=== PATIENT | male | born 1975 | race Caucasian/White ===

== ENCOUNTER → 2019-02-20 12:41 | Outpatient (CLI) | payer OTHER, SELFPAY ==
--- NOTE | 2019-02-20 | DI.RAD.S_ITS ---
PROCEDURE: XR KNEE LT 1TO2V INDICATIONS: LEFT KNEE PAIN TECHNIQUE: 2 views of the knee were acquired. COMPARISON: None. FINDINGS: Bones: No fractures or dislocations. No suspicious bony lesions. Soft tissues: No joint effusion. No suspicious soft tissue calcifications. IMPRESSION: Unremarkable 2 view left knee. Dictated by: Efrain Walton M.D. on 02/20/2019 at 17:30 Approved by: Efrain Walton M.D. on 02/20/2019 at 17:31
== END ==
PROVIDERS: Visit Provider Physician Assistant Medical
DX: M25.562 Pain in left knee (principal)
CPT/HCPCS: 73560

== ENCOUNTER → 2021-10-26 16:07 | Outpatient (CLI) | payer BC, SELFPAY ==
--- NOTE | 2021-10-26 | DI.RAD.S_ITS ---
PROCEDURE: XR CHEST 2V INDICATIONS: COVID TECHNIQUE: 2 views of the chest were acquired. COMPARISON: None. FINDINGS: Surgical changes and devices: Sternotomy wires are seen, some which are interrupted. Lungs and pleura: No consolidation, pleural effusions or pneumothorax. Mediastinum: Mediastinal contours are normal. The cardiac silhouette is upper limits of normal. Bones and chest wall: No suspicious bony abnormalities. Soft tissues appear unremarkable. IMPRESSION: No acute cardiopulmonary abnormality. Dictated by: Helio Shirley [facility] Interpreted: Alfie Prather MD on 10/26/2021 at 16:33 Approved by: Alfie Prather M.D. on 10/26/2021 at 17:00
== END ==
PROVIDERS: PCP Registered Nurse; Referring Provider Registered Nurse; Visit Provider Registered Nurse
DX: Z09 Encounter for follow-up examination after completed treatment for conditions other than malignant neoplasm (principal); Z86.16 Personal history of COVID-19
CPT/HCPCS: 71046

== ENCOUNTER 2021-11-29 12:26 | Emergency (ER) | payer OTHER, SELFPAY ==
[2021-11-29 12:39] VITALS: BP 113/73; PULSE 81; RESP 22; TEMP 36.6; O2SAT 99; BMI 27.4
--- NOTE | 2021-11-29 12:45 | ED_ITS ---
HPI - Back Pain/Injury <Helio Corona PA-C - Last Filed: 11/29/21 13:41> General Chief Complaint: Back Pain/Injury Stated Complaint: severe lower back pain Time Seen by Provider: 11/29/21 12:45 History of Present Illness HPI Narrative: David presents today with chief complaint of lower back pain that started yesterday morning. He reports that he was bending over stacking boxes. When he stood back up, not caring any box reaching out to grab another 1 he felt a spasm in his lower back. Initially did not think much of it but the pain became worse over the following few hours. This morning when he woke up his pain was significant any noticed a lot of tightness in his back. Pain is made worse with bending over at the hip or with any twisting movements. He denies any significant numbness or tingling in his lower extremities, difficulty walking, abdominal pain, urinary symptoms, fever or any other acute concerns or complaints. He denies any previous history of lower back injury or surgeries. Related Data Previous Rx's Medication Instructions Recorded methocarbamol 500 mg tablet 500 mg PO BID #14 tab 11/29/21 Review of Systems <Helio Corona PA-C - Last Filed: 11/29/21 13:41> Review of Systems Narrative: As per HPI Patient History <Helio Corona PA-C - Last Filed: 11/29/21 13:41> Social History Smoking Status: Unknown if ever smoked Exam <Helio Corona PA-C - Last Filed: 11/29/21 13:41> Narrative Exam Narrative: Exam Narrative: Const General: cooperative, healthy appearing, comfortable, no acute distress, well developed and well groomed Nutritional Appearance: average body habitus Orientation: alert and oriented x3 HENCA Head: normal to inspection and atraumatic Ears: hearing grossly normal bilaterally Nose: external nose normal and nares normal Face and sinus: normal facial exam Neck Neck: normal visual inspection and supple Resp Effort & Inspection: normal respiratory effort, able to speak in complete sentences, no audible wheezes, not labored, no nasal flaring and no respiratory distress Neuro General: alert, oriented x3, gait normal, tone normal and moves all extremities Cognition: normal cognition Speech: speech normal Gait: normal gait Musculoskeletal: No midline spinal tenderness. Bilateral lower lumbar paraspinal muscle tenderness right greater than left. Negative straight leg raise bilaterally. Normal sensation bilateral lower extremities. Patellar DTRs 2+ bilaterally. Psych Appearance: grossly normal and well kempt Mental Status: mental status grossly normal Speech and Movement: speech and movement normal Mood: congruent mood Affect: normal affect Initial Vital Signs Initial Vital Signs: Vital Signs Temperature 97.9 F 11/29/21 12:39 Pulse Rate 81 11/29/21 12:39 Respiratory Rate 22 11/29/21 12:39 Blood Pressure 113/73 11/29/21 12:39 Pulse Oximetry 99 11/29/21 12:39 <Mary Odonnell DO - Last Filed: 11/30/21 07:28> Initial Vital Signs Initial Vital Signs: Vital Signs Temperature 97.9 F 11/29/21 12:39 Pulse Rate 81 11/29/21 12:39 Respiratory Rate 11/29/21 12:39 Blood Pressure 113/73 11/29/21 12:39 Pulse Oximetry 99 11/29/21 12:39 Course <Helio Corona PA-C - Last Filed: 11/29/21 13:41> Orders Ordered: Discontinued Medications Ketorolac Tromethamine (Ketorolac 30 Mg/Ml Vial) 30 mg IM NOW ONE Stop: 11/29/21 13:00 Last Admin: 11/29/21 13:16 Dose: 30 mg Documented by: BRITTANEY Vital Signs Vital signs: Vital Signs - 8 hr 11/29/21 12:39 11/29/21 13:37 Temperature 97.9 F Pulse Rate 81 73 Respiratory Rate 22 18 Blood Pressure 113/73 117/67 Pulse Oximetry 99 98 <DO Sangita Arreola Last Filed: 11/30/21 07:28> Orders Ordered: Discontinued Medications Ketorolac Tromethamine (Ketorolac 30 Mg/Ml Vial) 30 mg IM NOW ONE Stop: 11/29/21 13:00 Last Admin: 11/29/21 13:16 Dose: 30 mg Documented by: BRITTANEY Vital Signs Vital signs: Vital Signs - 8 hr 11/29/21 12:39 11/29/21 13:37 Temperature 97.9 F Pulse Rate 81 73 Respiratory Rate 22 18 Blood Pressure 113/73 117/67 Pulse Oximetry 99 98 MDM - Back Pain/Injury <Helio Corona PA-C - Last Filed: 11/29/21 13:41> MDM Narrative Medical decision making narrative: Patient is well-appearing male with what appears to be a lumbar muscular strain. Recommend NSAIDs, muscle relaxers, light activity, stretching and warm compresses to help with symptoms. He does not have any midline spinal tetanus and has a normal examination in his lower extremities. Return precautions were strictly discussed and patient verbalizes understanding and agrees to the plan. Discharge Plan Departure Patient Disposition: Home Clinical Impression: Strain of lumbar region Instructions: DI for Back Spasm Activity Restrictions/Additional Instructions: It was very nice to meet you this afternoon. Please apply warm compresses, use NSAIDs, acetaminophen as needed to help symptoms. I will also prescribe a short course of muscle relaxers to be used as needed. Recommend light activity and exercise. You could also considered massage therapy to see if this helps symptoms. Return precautions include fever, numbness or tingling in lower ex tremities, changes in bowel or bladder habits, severe headache, or any other acute concerns or complaints. Thank you, Helio Corona PAC Prescriptions: New methocarbamol 500 mg tablet 500 mg PO BID Qty: 14 0RF Referrals: Stephen Brown ARNP [Primary Care Provider] - <Mary Odonnell DO - Last Filed: 11/30/21 07:28> Cosign ED Attending Cossajiature Attestation: I was immediately available in the department for consultation. Documentation has been reviewed. I agree with assessment and plan.
[2021-11-29] MEDS: KETOROLAC 30 MG/ML VIAL IM (13:16)
[2021-11-29 13:37] VITALS: BP 117/67; PULSE 73; RESP 18; O2SAT 98
== END 2021-11-29 13:38 | disposition home or self-care (01) ==
PROVIDERS: Emergency Provider Physician Assistant; PCP Registered Nurse
DX: S39.012A Strain of muscle, fascia and tendon of lower back, initial encounter (principal); X50.9XXA Other and unspecified overexertion or strenuous movements or postures, initial encounter; Y99.0 Civilian activity done for income or pay
CPT/HCPCS: 96372; 99283; J1885

== ENCOUNTER 2023-07-17 23:26 | Emergency (ER) | payer BC, SELFPAY ==
[2023-07-17 23:33] VITALS: BP 147/73; PULSE 77; RESP 18; TEMP 36.2; O2SAT 99; BMI 28.2
--- NOTE | 2023-07-17 23:48 | DI.RAD.S_ITS ---
PROCEDURE: XR CHEST 1V INDICATIONS: Chest pain. TECHNIQUE: One view of the chest was acquired. COMPARISON: [facility], CR, XR CHEST 2V, 10/26/2021, 16:05. FINDINGS: Surgical changes and devices: Sternotomy wires. Some of which are broken. Lungs and pleura: No dense consolidation or pleural effusion. Mediastinum: Mediastinal contours appear normal. Heart size is normal. Bones and chest wall: No suspicious bony lesions. Overlying soft tissues appear unremarkable. IMPRESSION: No acute radiographic abnormality on this single-view portable chest. Dictated by: Brady Arriaza M.D. on 07/18/2023 at 0:03 Approved by: Brady Arriaza M.D. on 07/18/2023 at 0:04
[2023-07-17 23:49] VITALS: PULSE 71; O2SAT 98
--- NOTE | 2023-07-17 23:56 | PC.NURSE ---
EKG performed by this RN. Pt was diaphoretic and reports hx of open heart surgery at 3 yo for VSD repair. Provider made aware.
[2023-07-18] VITALS: BP 119/71; PULSE 71; RESP 20; O2SAT 94
[2023-07-18] MEDS: ASPIRIN 81 MG CHEW TAB 324 MG PO (00:01)
[2023-07-18 00:03] LABS: Add Manual Diff / Slide Review NO; Basophils Absolute Auto 100 /uL (0-100); Basophils Percent Auto 0.9 % (0-2); Eosinophils Absolute Auto 200 /uL (0-450); Eosinophils Percent Auto 1.7 % (2-4); Hematocrit 41.7 % (41-53); Hemoglobin 14.5 g/dL (13.5-17.5); Lymphocytes Absolute Auto 1400 /uL (1100-4500); Lymphocytes Percent Auto 11.4 % (25-40); Mean Corpuscular HGB Conc 34.7 % (30-36); Mean Corpuscular Hemoglobin 29.8 PG (26-34); Mean Corpuscular Volume 86.1 fL (80-100); Monocytes Absolute Auto 1000 /uL (0-900); Monocytes Percent Auto 8.2 % (3-14); Neutrophils Absolute Auto 9300 /uL (1500-7000); Neutrophils Percent Auto 77.8 % (50-75); Platelet Count 222 X10^3/uL (150-400); Red Blood Cell Count 4.85 X10^6/uL (4.5-5.9); Red Cell Distribution Width 12.6 % (11.6-14.8)
[2023-07-18 00:05] LABS: INR 0.9 (0.9-1.3); Prothrombin Time 10.8 SECONDS (10.1-12.7)
[2023-07-18 00:08] LABS: PTT Partial Thromboplastin Tim 32 SECONDS (26-36)
[2023-07-18 00:10] LABS: Alanine Aminotransferase 48 IU/L (<50); Albumin 4.4 g/dL (3.5-5.0); Albumin Globulin Ratio 1.4 (1.0-2.8); Alkaline Phosphatase 83 U/L (38-126); Aspartate Aminotransferase 39 IU/L (17-59); Bilirubin Total 0.6 mg/dL (0.2-1.3); Blood Urea Nitrogen 22 mg/dL (9-20); Calcium 9.9 mg/dL (8.4-10.2); Carbon Dioxide 24 mmol/L (22-32); Creatine Kinase 92 U/L (55-170); Estimated Glomerular Filt Rate > 60 mL/min (>60); Globulin 3.1 g/dL (1.7-4.1); Glucose 109 mg/dL (70-100); HEMOLYSIS 28 (0-50); Lipase 75 U/L (23-300); Magnesium 1.8 mg/dL (1.6-2.3); Potassium 3.4 mmol/L (3.4-5.1); Sodium 136 mmol/L (137-145); Total Protein 7.5 g/dL (6.3-8.2)
[2023-07-18 00:15] LABS: Chloride 102 mmol/L (98-107)
--- NOTE | 2023-07-18 00:20 | ED.ABDPAIN ---
HPI - Abdominal Pain General Chief Complaint: Abdominal Pain Stated Complaint: ABD/Back pain Time Seen by Provider: 07/18/23 00:20 Source: patient Mode of arrival: EMS History of Present Illness HPI narrative: Patient is a 48 year-old male history of VSD repair as a young child, cardiac ablation a few years ago for atrial fibrillation presenting today with sudden onset right-sided back pain. 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 It was in 1 particular spot hurt when he breathes moved was very positional. He then had some abdominal pain he said it felt like the pain radiated straight through to his abdomen. No significant right upper quadrant pain nausea or vomiting. No flank pain. No other chest pain shortness of breath dizziness lightheadedness or syncopal episodes. Related Data Previous Rx's Medication Instructions Recorded methocarbamol 500 mg tablet 500 mg PO BID #14 tabs 11/29/21 Allergies Allergy/AdvReac Type Severity Reaction Status Date / Time No Known Drug Allergies Allergy Verified 07/17/23 23:32 Review of Systems Review of Systems ROS Unobtainable: All systems reviewed & are unremarkable except as noted in HPI and below Patient History Social History Smoking Status: Former smoker Smoking Status: Former smoker alcohol intake frequency: 0-2 drinks per day Substance Use Type: does not use Exam Initial Vital Signs Initial Vital Signs: Vital Signs Temperature 97.2 F L 07/17/23 23:33 Pulse Rate 77 07/17/23 23:33 Respiratory Rate 18 07/17/23 23:33 Blood Pressure 147/73 H 07/17/23 23:33 Pulse Oximetry 99 07/17/23 23:33 Oxygen Delivery Method Room Air 07/17/23 23:33 GENERAL: Alert pleasant well-appearing 48 year male HEENT: Head atraumatic,EOMI, pupils reactive, CARDIOVASCULAR: Regular rate and rhythm without murmurs, rubs or gallops. RESPIRATORY: Breath sounds equal bilaterally, no wheezes rales or rhonchi. ABDOMEN: Soft, nontender. Normoactive bowel sounds all 4 quadrants. No guarding or rebound. Negative Cook's BACK: No vertebral tenderness no step-off he is tender right rib at about 3 or 4 reproducible to palpation although he says it is better now. EXTREMITIES: Normal range of motion, no clubbing or edema. Neurovascularly intact NEUROLOGICAL: Alert and oriented x4. SKIN: Warm, dry, no laceration, no petechiae, no rashes or lesions. Course Orders Ordered: Discontinued Medications Aspirin (Aspirin 81 Mg Chew Tab) 324 mg PO NOW ONE Stop: 07/17/23 23:49 Last Admin: 07/18/23 00:01 Dose: 324 mg Documented By: SB Vital Signs Vital signs: Vital Signs - 8 hr 07/17/23 23:33 07/17/23 23:49 07/18/23 00:00 Temperature 97.2 F L Pulse Rate 77 71 Respiratory Rate 18 Blood Pressure 147/73 H 119/71 Pulse Oximetry 99 98 Oxygen Delivery Method Room Air 07/18/23 00:00 07/18/23 00:30 07/18/23 00:30 Temperature Pulse Rate 71 69 Respiratory Rate 20 25 H Blood Pressure 128/72 Pulse Oximetry 94 97 Oxygen Delivery Method 07/18/23 01:00 07/18/23 01:00 Temperature Pulse Rate 75 Respiratory Rate 20 Blood Pressure 111/72 Pulse Oximetry 92 Oxygen Delivery Method MDM - Abdominal Pain Lab Data 07/17/23 23:51 07/17/23 23:51 Labs: Lab Results 07/17/23 07/17/23 07/17/23 Range/Units 23:51 23:51 23:51 WBC 12.0 H (4.5-11.0) X10^3/uL RBC 4.85 (4.5-5.9) X10^6/uL Hgb 14.5 (13.5-17.5) g/dL Hct 41.7 (41-53) % MCV 86.1 (80-100) fL MCH 29.8 (26-34) PG MCHC 34.7 (30-36) % RDW 12.6 (11.6-14.8) % Plt Count 222 (150-400) X10^3/uL Neut % (Auto) 77.8 H (50-75) % Lymph % (Auto) 11.4 L (25-40) % Grant % (Auto) 8.2 (3-14) % Eos % (Auto) 1.7 L (2-4) % Baso % (Auto) 0.9 (0-2) % Neut # (Auto) 9300 H (1036-1258) /uL Lymph # (Auto) 1400 (7444-0418) /uL Grant # (Auto) 1000 H (0-900) /uL Eos # (Auto) 200 (0-450) /uL Baso # (Auto) 100 (0-100) /uL PT 10.8 (10.1-12.7) SECONDS INR 0.9 (0.9-1.3) APTT 32 (26-36) SECONDS Sodium 136 L (137-145) mmol/L Potassium 3.4 (3.4-5.1) mmol/L Chloride 102 (98-107) mmol/L Carbon Dioxide 24 (22-32) mmol/L BUN 22 H (9-20) mg/dL Creatinine 0.88 (0.66-1.25) mg/dL Estimated GFR > 60 (>60) mL/min BUN/Creatinine Ratio 25.0 H (6-22) Glucose 109 H (70-100) mg/dL Calcium 9.9 (8.4-10.2) mg/dL Magnesium 1.8 (1.6-2.3) mg/dL Total Bilirubin 0.6 (0.2-1.3) mg/dL AST 39 (17-59) IU/L ALT 48 (<50) IU/L Alkaline Phosphatase 83 (38-126) U/L Total Creatine Kinase 92 (55-170) U/L Troponin I < 0.012 (0.01-0.034) ng/mL Total Protein 7.5 (6.3-8.2) g/dL Albumin 4.4 (3.5-5.0) g/dL Globulin 3.1 (1.7-4.1) g/dL Albumin/Globulin Ratio 1.4 (1.0-2.8) Lipase 75 (23-300) U/L Imaging Data Chest x-ray: Radiologist's Impression: PROCEDURE:? XR CHEST 1V ? INDICATIONS:? Chest pain. ? TECHNIQUE:? One view of the chest was acquired.? ? COMPARISON:? [facility], , XR CHEST 2V, 10/26/2021, 16:05. ? FINDINGS:? ? Surgical changes and devices:? Sternotomy wires.? Some of which are broken. ? Lungs and pleura:? No dense consolidation or pleural effusion. ? Mediastinum:? Mediastinal contours appear normal.? Heart size is normal.? ? Bones and chest wall:? No suspicious bony lesions.? Overlying soft tissues appear unremarkable.? ? ? IMPRESSION:? No acute radiographic abnormality on this single-view portable chest.? ? ? Dictated by: Brady Arriaza M.D. on 07/18/2023 at 0: MDM Narrative Medical decision making narrative: Patient 48-year-old male presents today with sudden onset of right-sided back pain. Thought it was a rib that came out it lasted for couple hours but now seems to be better. He is cardiac history but was really having chest pain. EKG troponin are negative. Although EKG does show like a sinus arrhythmia I do not appreciate in AV karol block there is no dropped beat. He is not syncopal or dizzy. Chest x-ray is negative. He overall appears well. It negative right upper quadrant pain unlikely to be a colic cholelithiasis or cystitis he did not have any nausea or vomiting either. Bilirubin liver enzymes are within normal limits. He has no flank pain it is not really radiating to his groin consistent with nephrolithiasis. Probably musculoskeletal. At this time no need for any further workup Discharge Plan Departure Patient Disposition: Home Clinical Impression: Back pain Instructions: Thoracic Back Pain Activity Restrictions/Additional Instructions: *You have been diagnosed with thoracic back pain *What to do: At this time unclear exactly what happened. Hope it continues to feel good. You may need further workup including a gallbladder if it continues. *Continue to take medications as directed *Follow up with your primary care provider in 2-3 days or call [phone] *Return to ER if you should have increasing pain nausea vomiting chest pain dizziness passing or any new, worsening or concerning symptoms Prescriptions: No Action methocarbamol 500 mg tablet 500 mg PO BID Qty: 14 0RF Referrals: Stephen Brown ARNP [Primary Care Provider] - Stand Alone Forms: Patient Portal/API, Work Release Note
[2023-07-18 00:21] LABS: Troponin I < 0.012 ng/mL (0.01-0.034)
[2023-07-18 00:30] VITALS: BP 128/72; PULSE 69; RESP 25; O2SAT 97
[2023-07-18 01:00] VITALS: BP 111/72; PULSE 75; RESP 20; O2SAT 92
== END 2023-07-18 01:10 | disposition home or self-care (01) ==
PROVIDERS: Emergency Provider Emergency Medicine; PCP Registered Nurse
DX: M54.6 Pain in thoracic spine (principal)
CPT/HCPCS: 36415; 71045; 80053; 82550; 83690; 83735; 84484; 85025; 85610; 85730; 93005; 99284

== ENCOUNTER 2023-07-19 15:39 | Observation (INO) | payer BC, SELFPAY ==
[2023-07-19] VITALS (12 sets, daily range): BP systolic 107–145; BP diastolic 63–84; PULSE 72–87; RESP 16–33; TEMP 36.7–37.5; O2SAT 95–99; BMI 28.2
--- NOTE | 2023-07-19 15:50 | ED_ITS ---
HPI - General Adult General Chief complaint: Abdominal Pain Stated complaint: abd pain/heart palpitations Time Seen by Provider: 07/19/23 15:40 Source: patient Mode of arrival: Ambulatory History of Present Illness HPI narrative: Patient is a 48-year-old male. Has a history of cardiac ablation secondary to atrial fibrillation. Was seen here in the emergency department last evening for lower abdominal pain and back pain and palpitations. Had a workup and was subsequently discharged home after his symptoms improved/resolved. Since that time he has had continued palpitations. He now has lower abdominal pain. He no longer has back pain. His last bowel movement was yesterday. No urinary symptoms. No fevers. No prior abdominal surgeries. Related Data Previous Rx's Medication Instructions Recorded methocarbamol 500 mg tablet 500 mg PO BID #14 tabs 11/29/21 Allergies Allergy/AdvReac Type Severity Reaction Status Date / Time No Known Drug Allergies Allergy Verified 07/17/23 23:32 Review of Systems Constitutional Constitutional: Reports system reviewed and no additional complaints, except as documented Cardiovascular Cardiovascular: Reports system reviewed and no additional complaints, except as documented Gastrointestinal Gastrointestinal: Reports system reviewed and no additional complaints, except as documented Genitourinary Genitourinary: Reports system reviewed and no additional complaints, except as documented Musculoskeletal Musculoskeletal: Reports system reviewed and no additional complaints, except as documented Integumentary/Breasts Skin/Breast: Reports system reviewed and no additional complaints, except as documented Neurologic Neurologic: Reports system reviewed and no additional complaints, except as documented Patient History Social History Smoking Status: Former smoker Smoking Status: Former smoker alcohol intake frequency: 0-2 drinks per day Substance Use Type: does not use Exam Initial Vital Signs Initial Vital Signs: Vital Signs Temperature 98.1 F 07/19/23 15:43 Pulse Rate 78 07/19/23 15:43 Respiratory Rate 16 07/19/23 15:43 Blood Pressure 107/63 07/19/23 15:43 Pulse Oximetry 99 07/19/23 15:43 Oxygen Delivery Method Room Air 07/19/23 15:43 Const General: cooperative, comfortable and No ill appearing HENMT Head: normal to inspection and normocephalic Resp Effort & Inspection: normal respiratory effort Auscultation: clear to auscultation bilaterally Cardio Rate: regular rate Rhythm: regular rhythm Pulses: radial pulses present on the right GI Inspection: normal to inspection and non-distended Palpation: soft and tender (Lower abdomen) Skin General: no rashes or lesions noted Neuro General: patient alert, patient awake and moves all extremities Extrem General: capillary refill normal Course Orders Ordered: ED Orders 07/19/23 15:51 Complete Blood Count AUTO DIFF Stat Comprehensive Metabolic Panel Stat Lipase Stat EKG-12 Lead Stat 07/19/23 15:54 CT abdomen pelvis w con Stat 07/19/23 16:58 US abdomen limited Stat Discontinued Medications Sodium Chloride (Normal Saline 0.9%) 1,000 mls @ 1,000 mls/hr IV BOLUS ONE Stop: 07/19/23 16:47 Last Infusion: 07/19/23 16:57 Dose: 0 mls/hr Documented By: Admin: 07/19/23 16:00 Dose: 1,000 mls/hr Documented By: ITZEL Vital Signs Vital signs: Vital Signs - 8 hr 07/19/23 15:43 Temperature 98.1 F Pulse Rate 78 Respiratory Rate 16 Blood Pressure 107/63 Pulse Oximetry 99 Oxygen Delivery Method Room Air Medical Decision Making Medical Records Medical records reviewed: Yes I reviewed the patient's medical records. Lab Data Lab results reviewed: Yes I reviewed the patient's lab results. 07/19/23 15:51 07/19/23 15:51 Labs: Lab Results 07/19/23 07/19/23 Range/Units 15:51 15:51 WBC 10.9 (4.5-11.0) X10^3/uL RBC 4.59 (4.5-5.9) X10^6/uL Hgb 14.1 (13.5-17.5) g/dL Hct 40.0 L (41-53) % MCV 87.2 (80-100) fL MCH 30.6 (26-34) PG MCHC 35.1 (30-36) % RDW 12.4 (11.6-14.8) % Plt Count 218 (150-400) X10^3/uL Neut % (Auto) 64.7 (50-75) % Lymph % (Auto) 19.3 L (25-40) % [place] % (Auto) 11.2 (3-14) % Eos % (Auto) 4.0 (2-4) % Baso % (Auto) 0.8 (0-2) % Neut # (Auto) 7000 (3912-4708) /uL Lymph # (Auto) 2100 (7702-2920) /uL [place] # (Auto) 1200 H (0-900) /uL Eos # (Auto) 400 (0-450) /uL Baso # (Auto) 100 (0-100) /uL Sodium 136 L (137-145) mmol/L Potassium 3.6 (3.4-5.1) mmol/L Chloride 98 (98-107) mmol/L Carbon Dioxide 29 (22-32) mmol/L BUN 15 (9-20) mg/dL Creatinine 0.97 (0.66-1.25) mg/dL Estimated GFR > 60 (>60) mL/min BUN/Creatinine Ratio 15.5 (6-22) Glucose 108 H (70-100) mg/dL Calcium 9.3 (8.4-10.2) mg/dL Total Bilirubin 0.9 (0.2-1.3) mg/dL AST 35 (17-59) IU/L ALT 41 (<50) IU/L Alkaline Phosphatase 82 (38-126) U/L Total Protein 7.5 (6.3-8.2) g/dL Albumin 4.4 (3.5-5.0) g/dL Globulin 3.1 (1.7-4.1) g/dL Albumin/Globulin Ratio 1.4 (1.0-2.8) Lipase 49 (23-300) U/L Urine Dip Bedside Urine Glucose Negative Bedside Urine Bilirubin - Negative Bedside Urine Ketone - Negative Urine Specific [place] 1.005 Bedside Urine Occult Blood - Negative Bedside Urine pH 6.0 Bedside Urine Protein - Negative Bedside Urine Urobilinogen - Negative Bedside Urine Nitrite - Negative Bedside Urine Leukocytes - Negative Esterase Point of care testing: Urine Dip Bedside Urine Glucose Negative Bedside Urine Bilirubin - Negative Bedside Urine Ketone - Negative Urine Specific [place] 1.005 Bedside Urine Occult Blood - Negative Bedside Urine pH 6.0 Bedside Urine Protein - Negative Bedside Urine Urobilinogen - Negative Bedside Urine Nitrite - Negative Bedside Urine Leukocytes - Negative Esterase Imaging Data CT scan - abdomen/pelvis: Radiologist's Impression: PROCEDURE:? CT ABDOMEN PELVIS W CON ? INDICATIONS:? Generalized lower abdominal tenderness ? TECHNIQUE:? After the administration of intravenous contrast, axial sections acquired from the lung bases to the pubic symphysis.? Coronal and sagittal reformats were performed.? For radiation dose reduction, the following was used:? automated exposure control, adjustment of mA and/or kV according to patient size.? ? COMPARISON:? None. ? FINDINGS: ? Image quality:? Excellent.? ? Lung bases:? Unremarkable.? ? Heart:? Heart size is normal. Coronary atherosclerotic vascular calcifications are noted. ? ? ABDOMEN: Liver:? Tiny subcentimeter right hepatic lobe hypodensity likely representing a cyst or hemangioma.? ? Gallbladder:? Gallbladder is mildly distended demonstrating hyperemia, wall thickening and pericholecystic stranding.? No radiodense gallstone visualized on this study. Biliary ducts:? No intrahepatic or extrahepatic biliary ductal dilatation identified.? Pancreas:? Homogeneous enhancement without focal lesions or pancreatic ductal dilatation. ?No peripancreatic inflammation or organized fluid collections.? ? Spleen:? The spleen is normal in size and appearance.? ? Adrenal Glands:? Unremarkable.? ? Kidneys and Ureters:? There is a horseshoe kidney.? No hydronephrosis.? No suspicious cystic lesions within the kidneys.? Likely small right moiety cysts.? Bilateral ureters appear normal in course and caliber. ? Stomach and Bowel:? Stomach, small bowel loops, and colon are unremarkable.? Normal appendix. Peritoneum:? No abnormal intraperitoneal fluid.? No free air.? ? Ventral Wall:? ?There is a fat-containing umbilical hernia without acute in flammation.? Abdominal Nodes:? No retroperitoneal or mesenteric adenopathy by size criteria.? Vessels:? Aorta and inferior vena cava are normal in size.? ? PELVIS: Pelvic Organs:? Unremarkable.? ? Bladder:? Unremarkable.? ? Pelvic Nodes: No enlarged lymph nodes.? Miscellaneous: No inguinal hernias are seen.? Bones:? Visualized osseous structures appear intact without acute fracture or focal destructive lesion. No acute compression fractures of the imaged spine.? ? ? IMPRESSION:? ? 1. Distended and inflamed appearance of the gallbladder without evidence for radiodense gallstones.? Findings are suspicious for cholecystitis.? Consider further evaluation with dedicated right upper quadrant ultrasound if there are localizing symptoms. ? 2. Normal appendix. ? 3. Incidental note of horseshoe kidney.? No evidence for hydronephrosis. US - abdomen: Radiologist's Impression: PROCEDURE:? US ABDOMEN LIMITED ? INDICATIONS:? ABNORMAL CT ? TECHNIQUE:? Real-time scanning was performed of the abdominal and retroperitoneal organs, w ith image documentation.? ? COMPARISON:? [facility], CT, CT ABDOMEN PELVIS W CON, 07/19/2023, 15:53. ? FINDINGS:? ? Liver:? The liver is dense.? Increased attenuation.? Benign hepatic cyst on the right measuring 1 cm. ? Gallbladder:? Cholelithiasis.? Abnormal wall thickening.? Sonographic Cook sign.? ? Biliary ducts:? Intrahepatic bile ducts are non-dilated.? Extrahepatic bile duct caliber measures 5 mm.? Normal is 6-7 mm or less in diameter, or 10 mm or less post-cholecystectomy.? ? Pancreas:? Visualized portions of the pancreas are sonographically normal.? ? IMPRESSION:? Cholelithiasis with acute cholecystitis. ? Dense liver with increased attenuation, favoring moderate hepatic steatosis. ECG Data Interpretation: Sinus rhythm Ventricular rate is 78 First-degree AV block NV interval 216 milliseconds Normal axis Normal QRS No ST T wave changes MDM Narrative Medical decision making narrative: Patient did have some palpitations while here in the ER. The only abnormality that we have seen on the EKG has been occasional PVCs. His labs with comparison to last night are unremarkable. LFTs and lipase unremarkable. Urinalysis is unremarkable. CT scan is somewhat concerning about acute cholecystitis. Right upper quadrant ultrasound is ordered. Ultrasound is consistent with acute cholecystitis. I did discuss the case with Dr. Miller on-call for General surgery who will admit for further evaluation and treatment. Discharge Plan Departure Patient Disposition: Admitted As Inpatient Clinical Impression: Acute cholecystitis, PVC (premature ventricular contraction) Admit Date/Time: 07/19/23 18:01 Admit Provider: Ruben Miller
--- NOTE | 2023-07-19 15:54 | DI.CT.S_ITS ---
PROCEDURE: CT ABDOMEN PELVIS W CON INDICATIONS: Generalized lower abdominal tenderness TECHNIQUE: After the administration of intravenous contrast, axial sections acquired from the lung bases to the pubic symphysis. Coronal and sagittal reformats were performed. For radiation dose reduction, the following was used: automated exposure control, adjustment of mA and/or kV according to patient size. COMPARISON: None. FINDINGS: Image quality: Excellent. Lung bases: Unremarkable. Heart: Heart size is normal. Coronary atherosclerotic vascular calcifications are noted. ABDOMEN: Liver: Tiny subcentimeter right hepatic lobe hypodensity likely representing a cyst or hemangioma. Gallbladder: Gallbladder is mildly distended demonstrating hyperemia, wall thickening and pericholecystic stranding. No radiodense gallstone visualized on this study. Biliary ducts: No intrahepatic or extrahepatic biliary ductal dilatation identified. Pancreas: Homogeneous enhancement without focal lesions or pancreatic ductal dilatation. No peripancreatic inflammation or organized fluid collections. Spleen: The spleen is normal in size and appearance. Adrenal Glands: Unremarkable. Kidneys and Ureters: There is a horseshoe kidney. No hydronephrosis. No suspicious cystic lesions within the kidneys. Likely small right moiety cysts. Bilateral ureters appear normal in course and caliber. Stomach and Bowel: Stomach, small bowel loops, and colon are unremarkable. Normal appendix. Peritoneum: No abnormal intraperitoneal fluid. No free air. Ventral Wall: There is a fat-containing umbilical hernia without acute inflammation. Abdominal Nodes: No retroperitoneal or mesenteric adenopathy by size criteria. Vessels: Aorta and inferior vena cava are normal in size. PELVIS: Pelvic Organs: Unremarkable. Bladder: Unremarkable. Pelvic Nodes: No enlarged lymph nodes. Miscellaneous: No inguinal hernias are seen. Bones: Visualized osseous structures appear intact without acute fracture or focal destructive lesion. No acute compression fractures of the imaged spine. IMPRESSION: 1. Distended and inflamed appearance of the gallbladder without evidence for radiodense gallstones. Findings are suspicious for cholecystitis. Consider further evaluation with dedicated right upper quadrant ultrasound if there are localizing symptoms. 2. Normal appendix. 3. Incidental note of horseshoe kidney. No evidence for hydronephrosis. Dictated by: Fritz Lujan M.D. on 07/19/2023 at 16:36 Approved by: Fritz Lujan M.D. on 07/19/2023 at 16:46
[2023-07-19] MEDS: SODIUM CHLORIDE 0.9% 1,000 ML 1000 ML IV (16:00)
[2023-07-19 16:02] LABS: Add Manual Diff / Slide Review NO; Basophils Absolute Auto 100 /uL (0-100); Basophils Percent Auto 0.8 % (0-2); Eosinophils Absolute Auto 400 /uL (0-450); Hemoglobin 14.1 g/dL (13.5-17.5); Lymphocytes Absolute Auto 2100 /uL (1100-4500); Lymphocytes Percent Auto 19.3 % (25-40); Mean Corpuscular HGB Conc 35.1 % (30-36); Mean Corpuscular Hemoglobin 30.6 PG (26-34); Mean Corpuscular Volume 87.2 fL (80-100); Monocytes Absolute Auto 1200 /uL (0-900); Monocytes Percent Auto 11.2 % (3-14); Neutrophils Absolute Auto 7000 /uL (1500-7000); Neutrophils Percent Auto 64.7 % (50-75); Platelet Count 218 X10^3/uL (150-400); Red Blood Cell Count 4.59 X10^6/uL (4.5-5.9); Red Cell Distribution Width 12.4 % (11.6-14.8); White Blood Cell Count 10.9 X10^3/uL (4.5-11.0)
[2023-07-19 16:22] LABS: Alanine Aminotransferase 41 IU/L (<50); Albumin 4.4 g/dL (3.5-5.0); Albumin Globulin Ratio 1.4 (1.0-2.8); Alkaline Phosphatase 82 U/L (38-126); Aspartate Aminotransferase 35 IU/L (17-59); BUN Creatinine Ratio 15.5 (6-22); Bilirubin Total 0.9 mg/dL (0.2-1.3); Blood Urea Nitrogen 15 mg/dL (9-20); Calcium 9.3 mg/dL (8.4-10.2); Carbon Dioxide 29 mmol/L (22-32); Chloride 98 mmol/L (98-107); Estimated Glomerular Filt Rate > 60 mL/min (>60); Globulin 3.1 g/dL (1.7-4.1); Glucose 108 mg/dL (70-100); HEMOLYSIS < 15 (0-50); Lipase 49 U/L (23-300); Potassium 3.6 mmol/L (3.4-5.1); Sodium 136 mmol/L (137-145); Total Protein 7.5 g/dL (6.3-8.2)
--- NOTE | 2023-07-19 16:58 | DI.US.S_ITS ---
PROCEDURE: US ABDOMEN LIMITED INDICATIONS: ABNORMAL CT TECHNIQUE: Real-time scanning was performed of the abdominal and retroperitoneal organs, with image documentation. COMPARISON: [facility], CT, CT ABDOMEN PELVIS W CON, 07/19/2023, 15:53. FINDINGS: Liver: The liver is dense. Increased attenuation. Benign hepatic cyst on the right measuring 1 cm. Gallbladder: Cholelithiasis. Abnormal wall thickening. Sonographic Cook sign. Biliary ducts: Intrahepatic bile ducts are non-dilated. Extrahepatic bile duct caliber measures 5 mm. Normal is 6-7 mm or less in diameter, or 10 mm or less post-cholecystectomy. Pancreas: Visualized portions of the pancreas are sonographically normal. IMPRESSION: Cholelithiasis with acute cholecystitis. Dense liver with increased attenuation, favoring moderate hepatic steatosis. Dictated by: Edgard Soriano M.D. on 07/19/2023 at 17:52 Approved by: Edgard Soriano M.D. on 07/19/2023 at 17:53
[2023-07-19] MEDS: PIPERACILLIN/TAZO 3.375 GM in SODIUM CHLORIDE 0.9% 100 ML IV (18:28)
[2023-07-19] MEDS: SODIUM CHLORIDE 0.9% 1,000 ML 125 ML IV (19:46)
[2023-07-19] MEDS: MORPHINE 2 MG/ML INJ 4 MG IV (19:47)
--- NOTE | 2023-07-19 20:48 | PC.NURSE ---
Spoke with Dr Miller and received verbal order for 0.5-1mg hydromorphone Q2hrs PRN PAIN.
[2023-07-19] MEDS: HYDROMORPHONE 1 MG INJ IV (20:52)
[2023-07-20] VITALS (14 sets, daily range): BP systolic 100–129; BP diastolic 56–78; PULSE 18–82; RESP 15–20; TEMP 35.9–36.9; O2SAT 93–100; BMI 28.2
--- NOTE | 2023-07-20 | PATH_ITS ---
[facility] Accession Number: [id number] No. of containers..01 Tissue . 01 Material submitted: . gallbladder - GALLBLADDER . 01 Diagnosis: A. Gallbladder, Cholecystectomy: Chronic and active cholecystitis with transmural gangrenous necrosis, associated edema, and serositis. Extensive reactive changes are seen. Cholelithiasis. Negative for dysplasia and malignancy. MRV 07/22/2023 1629 Local . 01 Comment: Dr. Federico Izquierdo reviewed this case and concurs with the diagnosis. . 01 Electronically signed: . Sandy Hunter MD, Pathologist NPI- [id number] . 01 Gross description: . The specimen is received in formalin labeled with the patient's name, , and gallbladder, and consists of an intact gallbladder measuring 8.2 x 4.3 x 3.5 cm with congested serosa. The cystic duct margin is inked blue, and no pericystic lymph node is identified. The lumen contains multiple yellow faceted calculi measuring up to 2.1 cm in greatest dimension grossly obstructing the cystic duct admixed with brown mucoid bile. The mucosa is brown to red and diffusely denuded with no yellow discoloration, polyps, or lesions identified. The cueva average 0.5 cm thick. Piano Refinisher sections to include the cystic duct margin and full thickness sections are submitted in cassette A1. ([id number]) /CRISPIN 07/21/2023 1041 Local . 01 Pathologist provided ICD-10: K81.2 . 01 CPT . 264194 Specimen Comment: A courtesy copy of this report has been sent to [phone] Performed at: 01 [facility] [address] [place] [address], [place], [place] [id number] MD Don Hines MD Phone: [phone]
[2023-07-20] MEDS: PIPERACILLIN/TAZO 3.375 GM in SODIUM CHLORIDE 0.9% 100 ML IV ×2 (02:13→09:59)
[2023-07-20] MEDS: LACTATED RINGERS 1,000 ML 42 ML IV (08:26)
--- NOTE | 2023-07-20 10:56 | CM.DANOTE ---
DCP: Chart review for case, met with patient at bedside, they agree to case management assessment. Completed DCP assessment based on information available. Patient is a 48 year old admitted for choli cystitis. Plan for lap choli today at [address] Leone. Kayla at bedside who confirms she will be driver courier home today and support system for F/U. Patient states his PCP is actually a women?s health MD, so he needs to find a new one. Health teaching re: using his insurance website to find new PCP in [facility] as first preference. No foreseen DC barriers. PCP: Stephen Brown Payer: BC/BS Federal DME: None DCP: Home with supportive . Charity Proctor RN CM Discharge Planning/Care Management CM Discharge Assessment Start: 07/20/23 10:55 Freq: Status: Active Protocol: Document 07/20/23 10:55 BQ (Rec: 07/20/23 10:56 BANDAR [id number]) Discharge Planning Assessment Assigned Weights And Measures Inspector Charity Proctor RN CM Advance Directives? No History Provided By Patient Has Patient been admitted in last 30 No days? Prior Living Arrangements House Household Members spouse Type of transporation used prior to Drives own vehicle admit Independent with ADL's Yes Is patient alert and oriented? Yes Caregiver for Another No Discharge Plan Home Referrals Initiated None needed Whiteboard Updated in Patient Room with Yes name and ext. # of Weights And Measures Inspector Review Status In Process Next Review Type Continued Stay Review
--- NOTE | 2023-07-20 13:14 | SUR.OPER ---
Supine on padded OR bed, head on pillow, safety belt at thigh, left arm padded and tucked at side. Right arm secured on padded arm board <90 degrees abduction. Legs uncrossed. Padded footboard in place. Tape over blanket to secure lower legs.
--- NOTE | 2023-07-20 13:19 | P.HP_ITS ---
History of Present Illness History of Present Illness Date Patient Seen: 07/20/23 Time Patient Seen: 13:19 Chief complaint: abd pain/heart palpitations Narrative: 48-year-old man history of VSD and atrial fibrillation admitted to the hospital for acute cholecystitis. Over the past few days he is had significant right upper quadrant abdominal pain. Last night became severe presented to the [facility] Emergency Department. At admission afebrile vital signs within normal limits. White blood cell count 11 total bilirubin 0.9 LFTs within normal limits. Abdominal ultrasound and CT abdomen pelvis demonstrates cholelithiasis with acute gallbladder wall thickening. No prior abdominal surgeries. History of VSD and open heart surgery at the age of 3 Atrial fibrillation status post ablation not on anticoagulation [facility], [facility] Surgical History (Updated 07/20/23 @ 09:23 by Freda Ames RN) H/O cardiac radiofrequency ablation Social History household members: spouse Smoking Status: Former smoker alcohol intake: current Meds Home Medications and Allergies Home Medications Medication Instructions Recorded Confirmed Type gabapentin 300 mg capsule 300 mg PO QPM 07/19/23 07/19/23 History methocarbamol 750 mg tablet 750 mg PO PRN PRN Pain (Scale 07/19/23 07/19/23 History Score 1-3) Allergies Allergy/AdvReac Type Severity Reaction Status Date / Time No Known Drug Allergies Allergy Verified 07/17/23 23:32 Exam Vital Signs (past 8 hours): - 07/20/23 12:46 Temperature 98.5 F Pulse Rate 67 Respiratory Rate 17 Blood Pressure 109/59 L Pulse Oximetry 98 Oxygen Delivery Method Room Air Oxygen Delivery Method Room Air Oxygen Flow Rate 0 Narrative Exam Narrative: General adult man alert oriented no acute distress Chest nonlabored respiration Abdomen tender right upper quadrant. No peritonitis. Objective Labs 07/19/23 15:51 07/19/23 15:51 Labs: Laboratory Results - last 24 hr 07/19/23 15:51 WBC 10.9 RBC 4.59 Hgb 14.1 Hct 40.0 L MCV 87.2 MCH 30.6 MCHC 35.1 RDW 12.4 Plt Count 218 Neut % (Auto) 64.7 Lymph % (Auto) 19.3 L [place] % (Auto) 11.2 Eos % (Auto) 4.0 Baso % (Auto) 0.8 Neut # (Auto) 7000 Lymph # (Auto) 2100 [place] # (Auto) 1200 H Eos # (Auto) 400 Baso # (Auto) 100 Sodium 136 L Potassium 3.6 Chloride 98 Carbon Dioxide 29 BUN 15 Creatinine 0.97 Estimated GFR > 60 BUN/Creatinine Ratio 15.5 Glucose 108 H Calcium 9.3 Total Bilirubin 0.9 AST 35 ALT 41 Alkaline Phosphatase 82 Total Protein 7.5 Albumin 4.4 Globulin 3.1 Albumin/Globulin Ratio 1.4 Lipase 49 Assessment & Plan Assessment and plan (1) Acute cholecystitis: Status: Acute Assessment & Plan narrative: 48-year-old man history of VSD and atrial fibrillation with a signs and radiographic findings consistent with acute cholecystitis. Overview of his diagnosis was discussed. I neetu him a diagram to illustrate the disease process. We discussed management including antibiotic therapy and surgical intervention. Following discussion preference is to proceed with laparoscopic cholecystectomy. Overview of the operation was discussed. Operative risks including but not limited to hemorrhage, infection, damage to surrounding structures, biliary leak were discussed. Questions have been answered he is in agreement with this plan. He provides his written and verbal consent to proceed.
[2023-07-20] MEDS: BUPIVACAINE 0.25% (PF) VIAL 30 ML INJ (14:02)
--- NOTE | 2023-07-20 15:36 | PM.OP.1 ---
Operative Date/Time/Diagnoses Date of procedure: 07/20/23 Time of procedure: 15:36 Pre-op diagnosis: Acute cholecystitis Post-op diagnosis: same Procedure & Clinicians Procedure: Laparoscopic cholecystectomy Same procedure as scheduled: Yes Indications: 48-year-old man with symptoms and radiographic findings consistent with acute cholecystitis. Surgeon: Favio Leone Click Yes if Unassisted: Yes Anesthesia Type: General Operative Notes Findings: Acute gangrenous cholecystitis with large gallstones. Short cystic duct Specimen(s): other (Gallbladder) Estimated Blood Loss (mL): 100 Procedure in detail: The patient was placed supine on the table and bilateral lower extremity compression devices were applied. Anesthesia was induced they were intubated with an endotracheal tube and received 2g of Ancef. A time-out was performed. They were prepped and draped in sterile fashion. An infraumbilical incision was made. The fascia was elevated incised and the abdomen was entered atraumatically. A blunt tip 12mm balloon trocar was then inserted, pneumoperitoneum was established and inspection of the abdomen demonstrated no evidence of injury. They were placed head up and right side up and then a 11 mm port was placed high in the epigastrium and two 5mm in the right upper quadrant. The gallbladder was acutely inflamed with a thick tense wall. We percutaneously drained it difficile lactate its manipulation. The gallbladder was hydropic the bottom half was progressing towards gangrene. Once drained the gallbladder was grasped by the fundus and retracted over the liver and retracted laterally by the infundibulum. The hepatocystic triangle was meticulosly skeletonized with blunt dissection of fat and fibrous tissue from both the front and the back. Only two structures were then clearly seen entering the gallbladder the cystic duct and the cystic artery. With the critical view of safety fully established the cystic duct was clipped once proximally and once distally using the 10 mm Weck hemoclip applied under direct visualization and then sharply divided. The cystic duct was too short to place a second clip on the stay side in the usual manner.The cystic artery was divided in the same fashion. The gallbladder which was intrahepatic was removed from the liver bed using electro cautery. The liver bed was then inspected for hemostasis and this was achieved. The abdomen was irrigated with sterile saline and inspection was made that showed the clips in good position. The specimen was removed using Endo-Catch. The abdomen was desufflated. The umbilical fascia was closed with 0 Vicryl in a [id number] fashion under direct visualization. Skin incisions were irrigated and closed with 4-0 Monocryl. 30 ml of 0.25% bupivacaine was infiltrated into the subcutaneous tissue of the incisions. The wounds were sealed with Dermabond. Patient emerged from anesthesia was extubated and transferred to recovery in stable condition. The sponge and instrument count at the end of the operation was correct. Complications: none Post-operative Condition: stable Disposition: Acute Care
[2023-07-20] MEDS: HYDROMORPHONE 1 MG INJ IV (15:41)
[2023-07-20] MEDS: HYDROCODONE/ACET 5/325 TABLET 2 TAB PO (16:18)
[2023-07-20] MEDS: GABAPENTIN 300 MG CAPSULE PO (17:21)
[2023-07-20] MEDS: HYDROCODONE/ACET 5/325 TABLET 1 TAB PO (20:16)
[2023-07-20] MEDS: IBUPROFEN 600 MG TABLET PO (20:16)
[2023-07-21] MEDS: ACETAMINOPHEN 325 MG TABLET 650 MG PO (05:02)
[2023-07-21] MEDS: HYDROCODONE/ACET 5/325 TABLET 1 TAB PO (05:02)
[2023-07-21 07:00] VITALS: BP 119/57; PULSE 61; RESP 17; TEMP 36.2; O2SAT 97
[2023-07-21] MEDS: HYDROCODONE/ACET 5/325 TABLET 2 TAB PO (09:42)
[2023-07-21] MEDS: IBUPROFEN 600 MG TABLET PO (10:32)
[2023-07-21] MEDS: DOCUSATE 100 MG CAPSULE PO (10:32)
--- NOTE | 2023-07-21 10:48 | CM.DPC ---
DCP Cont. Reviewed chart for d/c updates and recommendations. Pt ready to d/c today, orders are in. will transport home. RN present in the room and providing d/c recommendations for further pain management post d/c. No further dcp needs identified at this time.
== END 2023-07-21 12:07 | disposition home or self-care (01) | DRG 419 ==
LOC: ED 18:01 → AC 20:43
PROVIDERS: Surgery; Admitting Provider Surgery; Emergency Provider Emergency Medicine; PCP Registered Nurse; Referring Provider Emergency Medicine; Visit Provider Surgery
PROC: 0FT44ZZ Resection of Gallbladder, Percutaneous Endoscopic Approach (ICD-10-PCS; CPT 47562; principal; 2023-07-20 13:45)
DX: K80.00 Calculus of gallbladder with acute cholecystitis without obstruction (principal); M54.6 Pain in thoracic spine; I49.3 Ventricular premature depolarization; K82.A1 Gangrene of gallbladder in cholecystitis
CPT/HCPCS: 47562; 36415; 71045; 74177; 76705; 80053; 81003; 82550; 83690; 83735; 84484; 85025; 85610; 85730; 93005; 96365; 96375; 99222; 99284; G0378; J0330; J1100; J1170; J2270; J2405; J2543; J2704; J3010; Q9967

== ENCOUNTER 2025-04-04 14:24 | Emergency (ER) | payer BC, SELFPAY ==
[2023-07-19 21:09] VITALS: BMI 28.2
[2025-04-04 14:40] VITALS: BP 119/72; PULSE 65; RESP 18; TEMP 36.3; O2SAT 97; BMI 29.0
--- NOTE | 2025-04-04 14:47 | EKG_ITS ---
[place] [id number] [place] [id number] Test Date: 2025-04-04 Pat Name: Vu Campos Department: [facility] Room: Gender: Male [place]: : 1975 Requested By: Order Number: [id number] Reading MD: Alexi Green MD Measurements Intervals [place] Rate: 62 P: 17 [place]: 224 QRS: -8 QRSD: 96 T: 36 QT: 454 QTc: 460 Interpretive Statements Sinus rhythm with 1st degree AV block RSR' or QR pattern in V1 suggests right ventricular conduction delay Inferior infarct , age undetermined Cannot rule out Anterior infarct , age undetermined NO SIGNIFICANT CHANGE FROM PRIOR TRACING Electronically Signed On 04-05-2025 11:07:15 PDT by Alexi Green MD
--- NOTE | 2025-04-04 15:01 | ED_ITS ---
HPI - Abdominal Pain General Chief Complaint: Abdominal Pain Stated Complaint: hernia issues pain comes and goes Time Seen by Provider: 04/04/25 14:49 Source: patient Mode of arrival: Family Vehicle History of Present Illness HPI narrative: 49-year-old gentleman history of VSD atrial fibrillation cholecystectomy presents with umbilical hernia pain along with waves of nausea earlier today or by if he moves in any position he feels sharp pains in the lower abdomen area. He has had 3 bowel movements in the past few days that are regular but none that are deemed constipation or diarrhea. Patient denies back pain chest pain shortness of breath urinary complaints or penile discharge or testicular pain. Other than what is stated 14 point review of system is negative Related Data Home Medications ?Medication ?Instructions ?Recorded ?Confirmed gabapentin 300 mg capsule 300 mg PO QPM 07/19/2308/04 methocarbamol 750 mg tablet 750 mg PO PRN PRN Pain (Sc bridgett 07/19/23 08/04/23 Score 1-3) Previous Rx's ?Medication ?Instructions ?Recorded acetaminophen 325 mg capsule 650 mg (2 x 325 mg) PO QI D PRN 07/20/23 (Tylenol) pain #60 caps celecoxib 200 mg capsule (Celebrex) 200 mg PO BID #20 caps 07/20/23 hydrocodone 5 mg-acetaminophen 325 1 tab PO Q4-6H PRN pain #20 tabs 04/04/25 mg tablet sennosides 8.6 mg-docusate sodium 1 tab-cap PO BID PRN constipation 04/04/25 50 mg capsule (Senna Plus) #30 caps Allergies Allergy/AdvReac Type Severity Reaction Status Date / Time No Known Drug Allergies Allergy Verified 04/04/25 14:40 Review of Systems Review of Systems ROS Unobtainable: All systems reviewed & are unremarkable except as noted in HPI and below Patient History Surgical History (Updated 07/20/23 @ 09:23 by Freda Ames RN) H/O cardiac radiofrequency ablation Social History household members: spouse alcohol intake: current Smoking Status: Former smoker tobacco type: cigarettes alcohol intake frequency: a few times a week Exam Narrative Exam Narrative: GENERAL: [49] year old patient appears stated age. Well-developed patient, in mild distress. HEAD: Atraumatic. Normocephalic. EYES: Pupils equal round and reactive. Extraocular motions intact. No scleral icterus. No injection or drainage. ENT: Nose without bleeding, purulent drainage. Throat without erythema, tonsillar hypertrophy or exudate. Airway patent. NECK: Trachea midline. Non tender CARDIOVASCULAR: Regular rate and rhythm without murmurs, gallops, or rubs. RESPIRATORY: Clear to auscultation. Breath sounds equal bilaterally. No wheezes, rales, or rhonchi. GASTROINTESTINAL: Abdomen soft, non-tender, nondistended. Umbilical hernia reducible and soft EXTREMITIES: No edema or joint tenderness. BACK: Nontender without deformity or crepitance. No flank tenderness. NEURO: AOx3. SKIN: No rash or erythema of visible areas Initial Vital Signs Initial Vital Signs: Vital Signs Temperature 97.4 F L 04/04/25 14:40 Pulse Rate 65 04/04/25 14:40 Respiratory Rate 18 04/04/25 14:40 Blood Pressure 119/72 04/04/25 14:40 Pulse Oximetry 97 04/04/25 14:40 Oxygen Delivery Method Room Air 04/04/25 14:40 Course Orders Ordered: ED Orders 04/04/25 14:47 Complete Blood Count AUTO DIFF Stat Comprehensive Metabolic Panel Stat Lipase Stat EKG-12 Lead Stat Ondansetron HCl (Ondansetron 4 Mg/2 Ml Inj) 4 mg IV NOW PRN PRN Reason: Nausea And Vomiting Ondansetron HCl (Ondansetron 4 Mg Odt) 4 mg PO NOW PRN PRN Reason: Nausea And Vomiting Vital Signs Vital signs: Vital Signs - 8 hr 04/04/25 14:40 Temperature 97.4 F L Pulse Rate 65 Respiratory Rate 18 Blood Pressure 119/72 Pulse Oximetry 97 Oxygen Delivery Method Room Air MDM - Abdominal Pain Imaging Data CT scan - abdomen/pelvis: Radiologist's Impression: [address] [address] [address] Scan Report Signed Patient: Vu Campos MR#: [id number] : 1975 Acct:[id number] Age/Sex: 49 / M Date of Service: 04/04/25 Loc: ED Accession Number: [id number] Procedure: CT abdomen pelvis w con Ordering Provider: Alexi Edge D.O. PROCEDURE: CT ABDOMEN PELVIS W CON INDICATIONS: abd pain TECHNIQUE: After the administration of intravenous contrast, axial sections acquired from the lung bases to the pubic symphysis. Coronal and sagittal reformats were performed. For radiation dose reduction, the following was used: automated exposure control, adjustment of mA and/or kV according to patient size. COMPARISON: [facility], CT, CT ABDOMEN PELVIS W CON, 07/19/2023, 15:53. FINDINGS: Image quality: Diagnostic. Lower Chest: No significant findings. ABDOMEN: Liver: Steatosis. Unchanged right hepatic low-attenuation focus. Liver measures 18.5 cm. Gallbladder: Not visualized. Biliary ducts: No biliary dilation. Pancreas: No ductal dilation. Spleen: Size is within normal limits. Adrenal Glands: No adrenal nodules. Kidneys and Ureters: Horseshoe kidney within the pelvis. No obstruction. Stomach and Bowel: Normal colonic caliber, without significant wall thickening. Peritoneum: No abnormal intraperitoneal fluid. No free air. Ventral Wall: Bowel containing ventral hernia without obstruction. Appendix is normal. Abdominal Nodes: No retroperitoneal or mesenteric adenopathy by size criteria. Vessels: Aorta and inferior vena cava are normal in size. PELVIS: Pelvic Organs: Unremarkable. Bladder: No bladder wall thickening, accounting for underdistention. Pelvic Nodes: No enlarged lymph nodes. Miscellaneous: Fat containing inguinal hernias are seen. Bones: No aggressive osseous abnormality. IMPRESSION: No acute intra-abdominal or pelvic process. ECG Data Interpretation: Sinus Rhythm HR 62 WA [address] QRS [address]-t wave change Unchanged from 07/19/24 [facility] Narrative Medical decision making narrative: All lab work, vital signs, nurse triage note, medication list, previous ER visits, and all imaging studies reviewed. CT scan showed fat containing inguinal hernia but otherwise no other acute intra-abdominal or pelvic process. Normal white count no left shift afebrile here CMP including LFTs and lipase were all normal. Patient has appointment with Dr. Miller tomorrow for follow up for umbilical hernia. Differential diagnosis includes strangulated incarcerated hernia, bowel obstruction, constipation, diverticulitis pancreatitis. Clear liquid diet advance as tolerated. DC home on Senokot and Narka Discharge Plan Departure Patient Disposition: Home Clinical Impression: Hernia, umbilical Qualifiers: Obstruction and gangrene presence: without obstruction or gangrene Qualified Code(s): K42.9 - Umbilical hernia without obstruction or gangrene Instructions: DI Umbilical Hernia-Child Activity Restrictions/Additional Instructions: Return with new or worsening symptoms. Follow up with Dr. Miller at your scheduled appointment tommorow. Take your medicines as directed. Prescriptions: New hydrocodone-acetaminophen 5-325 mg tablet 1 tab PO Q4-6H PRN (Reason: pain) Qty: 20 0RF Senna Plus 8.6-50 mg capsule 1 tab-cap PO BID PRN (Reason: constipation) Qty: 30 0RF No Action methocarbamol 750 mg tablet 750 mg PO PRN PRN (Reason: Pain (Scale Score 1-3)) gabapentin 300 mg capsule 300 mg PO QPM acetaminophen [Tylenol] 325 mg capsule 650 mg PO QID PRN (Reason: pain) Qty: 60 0RF celecoxib [Celebrex] 200 mg capsule 200 mg PO BID Qty: 20 0RF Referrals: Stephen Brown ARNP [Primary Care Provider, Medical] Stand Alone Forms: Patient Portal/API
[2025-04-04 15:32] LABS: Alanine Aminotransferase 43 IU/L (<50); Albumin 4.5 g/dL (3.5-5.0); Albumin Globulin Ratio 1.7 (1.0-2.8); Alkaline Phosphatase 80 U/L (38-126); Aspartate Aminotransferase 35 IU/L (17-59); BUN Creatinine Ratio 21.3 (6-22); Bilirubin Total 0.8 mg/dL (0.2-1.3); Blood Urea Nitrogen 19 mg/dL (9-20); Calcium 9.5 mg/dL (8.4-10.2); Carbon Dioxide 26 mmol/L (22-32); Chloride 103 mmol/L (98-107); Estimated Glomerular Filt Rate > 60 mL/min (>60); Globulin 2.7 g/dL (1.7-4.1); Glucose 98 mg/dL (70-99); HEMOLYSIS < 15 (0-50); Lipase 53 U/L (23-300); Potassium 3.9 mmol/L (3.4-5.1); Sodium 139 mmol/L (137-145); Total Protein 7.2 g/dL (6.3-8.2)
[2025-04-04 15:34] LABS: Add Manual Diff / Slide Review NO; Basophils Absolute Auto 0 /uL (0-100); Basophils Percent Auto 0.7 % (0-2); Eosinophils Absolute Auto 300 /uL (0-450); Eosinophils Percent Auto 4.8 % (2-4); Hematocrit 41.4 % (41-53); Hemoglobin 14.3 g/dL (13.5-17.5); Lymphocytes Absolute Auto 2300 /uL (1100-4500); Lymphocytes Percent Auto 37.5 % (25-40); Mean Corpuscular HGB Conc 34.6 % (30-36); Mean Corpuscular Hemoglobin 30.3 PG (26-34); Mean Corpuscular Volume 87.6 fL (80-100); Monocytes Absolute Auto 700 /uL (0-900); Monocytes Percent Auto 11.8 % (3-14); Neutrophils Absolute Auto 2700 /uL (1500-7000); Neutrophils Percent Auto 45.2 % (50-75); Platelet Count 213 X10^3/uL (150-400); Red Blood Cell Count 4.73 X10^6/uL (4.5-5.9); Red Cell Distribution Width 12.6 % (11.6-14.8)
[2025-04-04] MEDS: LACTATED RINGERS 1,000 ML 1000 ML IV (15:36)
[2025-04-04] MEDS: KETOROLAC 30 MG/ML VIAL IV (15:36)
--- NOTE | 2025-04-04 15:59 | DI.CT.S_ITS ---
PROCEDURE: CT ABDOMEN PELVIS W CON INDICATIONS: abd pain TECHNIQUE: After the administration of intravenous contrast, axial sections acquired from the lung bases to the pubic symphysis. Coronal and sagittal reformats were performed. For radiation dose reduction, the following was used: automated exposure control, adjustment of mA and/or kV according to patient size. COMPARISON: [facility], CT, CT ABDOMEN PELVIS W CON, 07/19/2023, 15:53. FINDINGS: Image quality: Diagnostic. Lower Chest: No significant findings. ABDOMEN: Liver: Steatosis. Unchanged right hepatic low-attenuation focus. Liver measures 18.5 cm. Gallbladder: Not visualized. Biliary ducts: No biliary dilation. Pancreas: No ductal dilation. Spleen: Size is within normal limits. Adrenal Glands: No adrenal nodules. Kidneys and Ureters: Horseshoe kidney within the pelvis. No obstruction. Stomach and Bowel: Normal colonic caliber, without significant wall thickening. Peritoneum: No abnormal intraperitoneal fluid. No free air. Ventral Wall: Bowel containing ventral hernia without obstruction. Appendix is normal. Abdominal Nodes: No retroperitoneal or mesenteric adenopathy by size criteria. Vessels: Aorta and inferior vena cava are normal in size. PELVIS: Pelvic Organs: Unremarkable. Bladder: No bladder wall thickening, accounting for underdistention. Pelvic Nodes: No enlarged lymph nodes. Miscellaneous: Fat containing inguinal hernias are seen. Bones: No aggressive osseous abnormality. IMPRESSION: No acute intra-abdominal or pelvic process. Dictated by: Krystal Dove M.D. on 04/04/2025 at 16:50 Approved by: Krystal Dove M.D. on 04/04/2025 at 16:52
[2025-04-04 16:18] VITALS: PULSE 70
[2025-04-04 16:30] VITALS: PULSE 59; O2SAT 99
[2025-04-04 17:27] VITALS: BP 123/64; PULSE 60; O2SAT 93
== END 2025-04-04 17:27 | disposition home or self-care (01) ==
PROVIDERS: Emergency Provider Family Medicine; PCP Registered Nurse
DX: K42.9 Umbilical hernia without obstruction or gangrene (principal); Z86.79 Personal history of other diseases of the circulatory system
CPT/HCPCS: 74177; 80053; 81003; 83690; 85025; 93005; 93010; 96361; 96374; 99283; 99284; J1885; Q9967

== ENCOUNTER 2025-05-15 08:26 | Day surgery (SDC) | payer BC, SELFPAY ==
[2023-07-19 21:09] VITALS: BMI 28.2
[2025-05-14 11:58] VITALS: BMI 30.9
[2025-05-15 08:48] VITALS: BP 131/83; PULSE 64; RESP 16; TEMP 36.2; O2SAT 99
[2025-05-15 08:50] VITALS: BMI 30.9
[2025-05-15] MEDS: LACTATED RINGERS 1,000 ML 42 ML IV (09:10)
[2025-05-15] MEDS: FAMOTIDINE 20 MG/2 ML VIAL IV (09:10)
--- NOTE | 2025-05-15 10:23 | PM.HP.IH.1 ---
History of Present Illness History of Present Illness Date Patient Seen: 05/15/25 Time Patient Seen: 10:23 Chief complaint: Hernia Repair - Umbilical Narrative: Robert is a 50-year-old man with an umbilical hernia. See the office note for details. ON LICENSE OF [facility] Medical History (Updated 05/14/25 @ 12:06 by Barbra Haider RN) PAF (paroxysmal atrial fibrillation) Surgical History (Updated 05/14/25 @ 12:13 by Barbra Haider RN) Hx of cholecystectomy H/O cardiac radiofrequency ablation Social History household members: spouse Smoking Status: Former smoker alcohol intake: current Meds Home Medications and Allergies Home Medications ?Medication ?Instructions ?Recorded ?Confirmed ?Type gabapentin 300 mg capsule 300 mg PO QPM 07/19/23 05/15/25 History hydrocodone 5 mg-acetaminophen 325 1 tab PO Q4-6H PRN pain #20 tabs 04/04/25 05/15/25 Rx mg tablet sennosides 8.6 mg-docusate sodium 1 tab-cap PO BID PRN constipation 04/04/25 Rx 50 mg capsule (Senna Plus) #30 caps metoprolol succinate 25 mg 25 mg PO DAILY 04/05/25 05/15/25 History tablet,extended release 24 hr Allergies Allergy/AdvReac Type Severity Reaction Status Date / Time No Known Drug Allergies Allergy Verified 05/15/25 08:38 Exam Vital Signs (past 8 hours): - 05/15/25 08:48 Temperature 97.2 F L Pulse Rate 64 Respiratory Rate 16 Blood Pressure 131/83 Pulse Oximetry 99 Oxygen Delivery Method Room Air Oxygen Delivery Method Room Air Const General: No acute distress Assessment & Plan Assessment and plan (1) Hernia, umbilical: Qualifiers: Obstruction and gangrene presence: without obstruction or gangrene Qualified Code(s): K42.9 - Umbilical hernia without obstruction or gangrene Status: Inactive Plan We will proceed with an open umbilical hernia repair with a mesh. Time-Based Coding :: [TOTAL MINUTES] spent with patient and on the chart (including review of chart, obtaining history, exam, reviewing outside data, placing orders, documenting exam and treatment plan, and counseling patient) on [DATE]. [employer] Technician Document charge(s): No
[2025-05-15] MEDS: CEFAZOLIN 2 GM/100 ML PREMIX 100 ML IV (11:10)
--- NOTE | 2025-05-15 11:20 | SUR.OPER ---
Supine on padded OR bed, head on pillow, arms secured on padded arm boards at <90 degrees abduction, legs uncrossed, safety belt at thigh, tape over blanket over lower legs.
[2025-05-15] MEDS: BUPIVACAINE 0.5% W/ EPI (PF) 30 ML VIAL INJ (11:37)
--- NOTE | 2025-05-15 11:50 | PM.OP.1 ---
Operative Date/Time/Diagnoses Date of procedure: 05/15/25 Time of procedure: 11:51 Pre-op diagnosis: Umbilical hernia Post-op diagnosis: same Procedure & Clinicians Procedure: Open umbilical hernia repair with mesh Same procedure(s) as scheduled: Yes Surgeon: Ruben Miller Deaf And Hard Of Hearing Teacher: Ced Monroe Anesthesia Type: General Operative Notes Findings: 2.5 cm defect Applied: none Estimated Blood Loss (mL): 9 Procedure in detail: Ancef was administered. The patient was brought to the operating room, placed on the table in the supine position and general endotracheal anesthesia was induced. The abdomen was prepped and draped in the usual fashion. A time-out was performed. A 4 cm curvilinear incision was made inferior to the umbilicus. The hernia sac was dissected free from the surrounding subcutaneous adipose tissue. The sac was dissected off the umbilical stalk using a combination of cautery, sharp and blunt dissection. The hernia sac was dissected free from the fascial ring and allowed to drop back down into the abdomen. The fascial defect was 2.5-3 cm in diameter. The fascia was then closed transversely with multiple interrupted 0 Ethibond sutures. The subcutaneous adipose tissue was cleared off of the anterior sheath circumferentially about 2 cm in each direction. A piece of polypropylene mesh was trimmed to fit over the fascial closure and secured with Tisseel. Once the Tisseel was dried the umbilical skin was tacked down to the mesh with a single 3-0 Vicryl stitch. The skin was closed with multiple interrupted 3-0 Vicryl dermal sutures followed by a running 4 Monocryl subcuticular closure. Steri-Strips were applied and an abdominal binder was applied. Ced LEAL provided assistance with exposure, retraction and closure of incisions. Complications: none Post-operative Condition: stable Disposition: PACU
[2025-05-15 12:01] VITALS: BP 97/52; PULSE 58; RESP 9; TEMP 36.6; O2SAT 92
[2025-05-15 12:05] VITALS: BP 89/55; PULSE 59; RESP 8; O2SAT 96
[2025-05-15 12:10] VITALS: BP 95/53; PULSE 67; RESP 20; O2SAT 97
[2025-05-15 12:15] VITALS: BP 95/51; PULSE 72; RESP 962; O2SAT 96
[2025-05-15] MEDS: OXYCODONE/ACETAMINOPHEN 5/325 TABLET 1 TAB PO (12:24)
[2025-05-15 12:55] VITALS: BP 118/70; PULSE 75; RESP 18; O2SAT 96
== END 2025-05-15 12:56 | disposition home or self-care (01) ==
PROVIDERS: PCP Naturopath; Referring Provider Surgery; Visit Provider Surgery
PROC: (CPT 49591; principal; 2025-05-15 09:45)
DX: K42.9 Umbilical hernia without obstruction or gangrene (principal); Z87.891 Personal history of nicotine dependence
CPT/HCPCS: 49591; C1781; C9250; J0690; J1100; J2250; J2405; J2704; J3010; J3475; J3490